=== PATIENT | male | born 1970 | race Caucasian/White ===

== ENCOUNTER 2023-08-05 09:47 | Emergency (ER) | payer OTHER, MEDICAID ==
[~2023-08-05] VITALS: Ht 172.7 cm; Wt 80.0 kg
[~2023-08-05 09:47] MED LIST: BACTRIM DS; LOMOTIL
[2023-08-05 09:48] VITALS: TEMP 98.1; O2SAT 100
[2023-08-05] MEDS: DEXAMETHASONE 1MG TABLET PO ONE (10:27)
[2023-08-05] MEDS: FAMOTIDINE 20MG TABLET PO ONE (10:27)
[2023-08-05] MEDS: DEXAMETHASONE 4MG TABLET PO SCH (10:30)
[2023-08-05 12:30] VITALS: BP 115/72; PULSE 53; RESP 17
[2023-09-13] MEDS ORDERED: METR-167 MT (15:39)
[2023-09-13] MEDS ORDERED: LEVO-65 MT (15:39)
== END 2023-08-05 13:33 | disposition home or self-care (01) ==
LOC: ER 09:53
DX: T78.2XXA Anaphylactic shock, unspecified, initial encounter (principal); Z91.048 Other nonmedicinal substance allergy status
CPT/HCPCS: 99291; J8540; Z7610